=== PATIENT | female | born 1930 | race Caucasian/White ===

== ENCOUNTER 2018-12-06 15:31 | Inpatient (IN) ==
[2018-12-06] MEDS ORDERED: ZOFRAN IV PRN (16:03)
[2018-12-06] MEDS: LEVAQUIN 500 MG/D5W 500 MG/100 ML IVPB IV SCH (17:34)
[2018-12-06] MEDS: NS 1,000 ML IV SCH (17:34)
[2018-12-06 17:39] LABS: BASO# 0.03 X1000 (0.0-0.2); BASO% 0.1 % (0.0-0.8); EOS# 0.04 X1000 (0.0-0.7); EOS% 0.2 % (0.0-10.0); HEMATOCRIT 35.6 % (37.0-47.0); IMM GRAN# 0.05 X1000 (0.0-0.04); IMM GRAN% 0.2 % (0.0-0.5); LYMPH# 0.99 X1000 (1.2-3.4); LYMPH% 4.9 % (20.5-51.1); MCH 30.2 PG (27-31); MCHC 33.7 g/dL (33-37); MCV 89.4 FL (81-99); MONO# 0.97 X1000 (0.11-0.59); MONO% 4.8 % (1.7-9.3); MPV 10.9 FL (7.4-10.4); NEUT# 18.07 X1000 (1.4-6.5); NEUT% 89.8 % (42.2-75.2); PLT 191 X1000 (130-400); RBC 3.98 XMIL (4.2-5.4); RDW 13.2 % (11.5-14.5); WBC 20.15 X1000 (4.8-10.8)
[2018-12-06 17:42] LABS: EOS 1 % (1-10); LYMPHS 3 % (21-51); MONO 4 % (1-9); SEGS 92 % (42-75)
--- NOTE | 2018-12-06 17:42 | Diag Imaging Result Doc PS360 ---
EXAM: CT ABDOMEN/PELVIS W/O CONTRAST 12/06/2018 HISTORY: Intractable abdominal pain TECHNIQUE: This exam was performed using automated exposure control, adjustment of mA or kV according to patient size, and/or use of iterative reconstruction technique. COMMENT: The current examination is compared with 04/27/2012. There is a somewhat ill-defined small nodular opacity in the right lower lobe on image 12 which was not clearly present at the time the previous examination. There is a large hiatal hernia which was present previously. The adrenal glands are not enlarged. The spleen is not enlarged. There has been cholecystectomy. There is no evidence of nephrolithiasis or hydronephrosis. There is some stool in the colon without evidence of dilatation. There has been previous appendectomy. There has been previous hysterectomy. There is diverticulosis in the sigmoid colon without evidence of diverticulitis. The urinary bladder is not distended. The small bowel is not distended and there is no evidence of abdominal aortic aneurysm. The pancreas is somewhat atrophic in appearance. There are spondylotic changes in the lumbar spine with scoliosis and convexity to the right. Overall, considering the lack of IV contrast and oral contrast on the current examination and the somewhat improved constipation on the current examination, there has been no significant change. IMPRESSION: No evidence of stones or obstruction. Hiatal hernia. New nodule in the right lower lobe of uncertain significance. Electronically signed by Shaggy Mejia 12/06/2018 5:39 PM
[2018-12-06 17:48] LABS: ALB/GLOB RATIO 1.4; ALBUMIN 4.3 g/dL (3.5-5.0); CALCIUM 9.8 mg/dL (8.8-10.2); CREATININE 1.3 mg/dL (0.5-0.9); POTASSIUM 3.5 mmol/L (3.5-5.1); TOTAL BILIRUBIN 0.42 mg/dL (0.20-1.00); TOTAL PROTEIN 7.3 g/dL (6.3-8.3)
--- NOTE | 2018-12-06 18:28 | Diag Imaging Result Doc PS360 ---
EXAM: CHEST-2 VIEWS 12/06/2018 HISTORY: Rigor/ leukocytosis/ weakness TECHNIQUE: PA and lateral chest COMMENT: There is a hiatal hernia. There is alveolar opacity in the right upper lobe which was not present on 02/21/2013. There is also increased opacity in the right middle lobe. IMPRESSION: Bronchopneumonia. Electronically signed by Shaggy Mejia 12/06/2018 6:25 PM
[2018-12-06] MEDS: TYLENOL PO PRN (18:34)
[2018-12-06 21:26] LABS: URINE SOURCE CLEAN CATCH
[2018-12-06 21:29] LABS: BILIRUBIN URINE NEGATIVE (NEGATIVE); BLOOD URINE SMALL (NEGATIVE); COLOR YELLOW; GLUCOSE URINE NEGATIVE (NEGATIVE); KETONE URINE NEGATIVE (NEGATIVE); LEUKOCYTES URINE TRACE (NEGATIVE); NITRITE URINE NEGATIVE (NEGATIVE); PH URINE 5.5; PROTEIN URINE NEGATIVE (NEGATIVE); SP GRAVITY URINE 1.007; TURBIDITY URINE CLEAR (CLEAR); UROBILINOGEN URINE NORMAL (NORMAL)
[2018-12-06 21:31] LABS: UR EPITHELIAL CELLS <10 /HPF (<10); URINE BACTERIA NEGATIVE /HPF; URINE RBC <10 /HPF (<10); URINE WBC <10 /HPF (<10)
--- NOTE | 2018-12-07 02:19 | HISTORY AND PHYSICAL ---
PRIMARY CARE PHYSICIAN: Dr. Austin Toribio. CHIEF COMPLAINT: Myalgias, weakness, and a rigor. HISTORY OF PRESENT ILLNESS: An 88-year-old white female with a complicated past medical history, presents for evaluation of above-mentioned symptoms. Pertinent history of present illness began several months ago. At that time, she developed intermittent myalgias, arthralgias, nausea and vomiting. Because of her persistent nausea and vomiting, approximately 1 week ago she had EGD. The patient tolerated this well. Since that time, she has experienced nausea and vomiting only with over eating. The patient states yesterday she developed progressive nausea and vomiting with associated diarrhea. She went to an audiology appointment this morning. While there, she developed profound weakness as well as a rigor. The patient presented to my office for further evaluation and management. Upon arrival in the emergency department, patient was noted to have a rigor and profound weakness. Full evaluation was pursued suggesting an underlying pneumonia and grossly elevated white blood cell count. Patient will be admitted to the hospital for full evaluation and management of community-acquired pneumonia. Of note, patient denies cough, congestion, fevers, shortness of breath, hematochezia, melena, dysuria, hematuria, and pyuria. PAST MEDICAL HISTORY: 1. Abnormal electrocardiogram. 2. Multiple actinic keratoses and a history of skin cancers. 3. Allergic rhinitis. 4. Anemia. 5. Atypical chest pain with negative cardiac evaluation in 2007. 6. Chronic cholecystitis status post laparoscopic cholecystectomy in 2008. 7. Diverticulosis. 8. Depression. 9. Hiatal hernia. 10. Reflux disease. 11. Hypertension. 12. Hypertriglyceridemia. 13. Nonalcoholic fatty liver disease. 14. External hemorrhoids. 15. Hyperlipidemia. 16. Hypothyroidism. 17. Impaired fasting glucose. 18. Chronic low back pain. 19. Osteoarthritis. 20. Palpitations. 21. Postmenopausal state. 22. Valvular heart disease. CURRENT MEDICATIONS: 1. Amlodipine 10 mg daily. 2. Aspirin 81 mg daily. 3. Calcium plus vitamin D once a day. 4. Coenzyme Q10, 100 mg daily. 5. Vitamin B12, 1000 mcg IM monthly. 6. Dexilant 60 mg daily. 7. Duloxetine 30 mg daily. 8. Ibuprofen 800 mg every 6 hours as needed. 9. Levothyroxine 100 mcg daily. 10. Losartan/hydrochlorothiazide 100/12.5 daily. 11. Pravastatin 20 mg at bedtime. 12. Zofran 4 mg every 4 to 6 hours as needed. ALLERGIES: Patient states she is allergic to Celebrex, erythromycin, and penicillin. SOCIAL HISTORY: Patient denies tobacco, alcohol, or illicit drug use. She is a retired triage specialist. She enjoys reading. She exercises by walking. FAMILY HISTORY: Patient's father passed at age 69 secondary to complications of an acute myocardial infarction. Patient's mother passed at age 96 secondary to complications of congestive heart failure. History of diabetes and ovarian cancer is present in siblings. REVIEW OF SYSTEMS: A 12-point review of systems was performed. Pertinent positives and negatives noted in history present illness. PHYSICAL EXAMINATION: VITAL SIGNS: Temperature 99.6 degrees, heart rate 68, respirations 18, blood pressure is 143/71. GENERAL: Well-nourished, well-developed, no acute distress. HEENT: Normocephalic, atraumatic. Pupils equal, round, react to light. Extraocular muscles intact. Sclerae anicteric. [place] conjunctivae. Oral and nasopharynx clear without exudate. NECK: Supple. No lymphadenopathy. No thyromegaly. No bruits auscultated. CARDIOVASCULAR: Regular rate and rhythm. No significant murmurs, rubs, or gallops. PULMONARY: Clear to auscultation bilaterally. ABDOMEN: Soft, nontender, nondistended. Positive bowel sounds. EXTREMITIES: Moves all extremities well. No significant clubbing, cyanosis, or edema. NEUROLOGIC: Cranial nerves 2 through 12 grossly intact. Motor and sensory grossly intact. PSYCHOLOGIC: Appropriate. LABORATORY DATA: White blood cell count 20.15, hemoglobin 12.0, hematocrit 35.6, platelet count is 191,000. Sodium 137, potassium 3.5, chloride 99, bicarb 26, BUN 35, creatinine 1.3. Glucose 142, calcium 9.8, total bilirubin 0.42, total protein 7.3, albumin 4.3, alkaline phosphatase 84, AST 22, ALT 16. Urinalysis revealed small blood and trace leukocyte esterase. Chest x-ray revealed bronchopneumonia. Abdominal and pelvis CT revealed no evidence of stones or obstruction. Hiatal hernia. New nodule in the right lower lobe of uncertain significance. ASSESSMENT AND PLAN: An 88-year-old, white female, presented acutely to my office with a rigor. A full evaluation revealed underlying bronchopneumonia with a significant leukocytosis. The patient will be admitted to the hospital for full evaluation and management of this condition. 1. Admit to General Medicine. 2. Community-acquired pneumonia/bronchopneumonia -- we will check blood cultures and sputum cultures. We will start patient on IV levofloxacin therapy. We will encourage incentive spirometry. As patient is not wheezing, we will not initiate bronchodilators; however, we will have a low threshold should her condition progress. 3. Leukocytosis -- this likely is a consequence of her acute illness. We will treat as described above. 4. Reflux disease -- patient has longstanding disease. We will continue Dexilant therapy. 5. Right lower lobe lung nodule -- this is a new diagnosis. We will plan to follow this as an outpatient. 6. Hyperlipidemia/hypertriglyceridemia -- we will continue pravastatin therapy. 7. Hypothyroidism -- we will continue patient on replacement. 8. Fluid, electrolytes, nutrition -- we will monitor electrolytes. Normal saline at 50 mL/h. Cardiac prudent diet. 9. Prophylaxis -- patient will be placed on subcutaneous Lovenox. cc: Austin Toribio MD
[2018-12-07] MEDS: TYLENOL PO PRN ×3 (04:16→20:57)
[2018-12-07] MEDS: DEXILANT PO SCH (06:19)
[2018-12-07] MEDS: SYNTHROID PO SCH (06:19)
[2018-12-07 06:40] LABS: BASO# 0.03 X1000 (0.0-0.2); BASO% 0.2 % (0.0-0.8); EOS% 0.7 % (0.0-10.0); HEMATOCRIT 31.6 % (37.0-47.0); HEMOGLOBIN 10.5 g/dL (12.0-16.0); IMM GRAN# 0.02 X1000 (0.0-0.04); IMM GRAN% 0.1 % (0.0-0.5); LYMPH# 1.96 X1000 (1.2-3.4); LYMPH% 14.7 % (20.5-51.1); MCH 29.7 PG (27-31); MCHC 33.2 g/dL (33-37); MCV 89.3 FL (81-99); MONO# 0.86 X1000 (0.11-0.59); MONO% 6.4 % (1.7-9.3); MPV 10.7 FL (7.4-10.4); NEUT# 10.38 X1000 (1.4-6.5); NEUT% 77.9 % (42.2-75.2); PLT 173 X1000 (130-400); RBC 3.54 XMIL (4.2-5.4); RDW 13.2 % (11.5-14.5); WBC 13.35 X1000 (4.8-10.8)
[2018-12-07 06:56] LABS: ALB/GLOB RATIO 1.4; ALBUMIN 3.6 g/dL (3.5-5.0); CALCIUM 8.6 mg/dL (8.8-10.2); CREATININE 1.2 mg/dL (0.5-0.9); POTASSIUM 3.3 mmol/L (3.5-5.1); TOTAL BILIRUBIN 0.52 mg/dL (0.20-1.00); TOTAL PROTEIN 6.2 g/dL (6.3-8.3)
[2018-12-07] MEDS: NS 1,000 ML IV SCH (08:16)
[2018-12-07] MEDS: ASPIRIN PO SCH (08:57)
[2018-12-07] MEDS: CYMBALTA PO SCH (08:57)
[2018-12-07] MEDS: LOVENOX SUBQ SCH (08:57)
[2018-12-07] MEDS: CALTRATE 600 + D PO SCH (08:57)
[2018-12-07] MEDS: HYZAAR 50/12.5 MG PO SCH (09:00)
[2018-12-07] MEDS: LEVAQUIN 500 MG/D5W 500 MG/100 ML IVPB IV SCH (19:50)
[2018-12-07] MEDS ORDERED: PRAVACHOL PO SCH (21:00)
--- NOTE | 2018-12-07 22:24 | PROGRESS NOTE ---
DATE: 12/07/2018 SUBJECTIVE: Patient was admitted yesterday with community-acquired pneumonia/bronchopneumonia. Patient was started on levofloxacin therapy. Since starting levofloxacin, patient's overall condition has demonstrated improvement. The patient has not experienced a recurrence of her rigor. Patient denies fevers and chills. Her energy level is slowly improving. OBJECTIVE: Temp 98.5, heart rate 60-84, respirations 14-18, blood pressure 120 to 136/43 to 51.General: Well nourished, well developed, no acute distress. Cardiovascular: Regular rate and rhythm. No significant murmurs, rubs, or gallops. Pulmonary: Clear to auscultation bilaterally. Abdomen: Soft, nontender, nondistended. Positive bowel sounds. Extremities: Moves all extremities well. No significant clubbing, cyanosis, or edema. Dermatologic: Evaluation reveals no evidence of rash. LABORATORY DATA: White blood cell count 13.35, hemoglobin 10.5, hematocrit 31.6, platelet count 173,000, sodium 141, potassium 3.3, chloride 105, bicarb 23, BUN 30, creatinine 1.1, glucose 119, calcium 8.6, total bilirubin 0.52, total protein 6.2, albumin 3.6, alkaline phosphatase 68, AST 14, ALT 13. ASSESSMENT AND PLAN: 1. Continue acquired pneumonia/bronchopneumonia-patient has achieved significant improvement with levofloxacin therapy. We will continue this and encourage incentive spirometry. We will continue to follow blood cultures. We will encourage activity. 2. Leukocytosis-this is slowly improving. We will recheck levels in the morning. We will continue treatment for the patient's community-acquired pneumonia with levofloxacin therapy. 3. Right lower lobe lung nodule-this is a new diagnosis. Patient will need close followup as an outpatient. 4. Hyperlipidemia/hypertriglyceridemia-we will continue patient on pravastatin therapy. 5. Hypothyroidism-we will continue patient on replacement. 6. Disposition-at this point, patient continues to require usp care in a hospital setting. We will plan discharge home once appropriate. cc: Austin Toribio MD
[2018-12-08] MEDS: SYNTHROID PO SCH (06:23)
[2018-12-08] MEDS: DEXILANT PO SCH (06:23)
[2018-12-08 06:33] LABS: BASO# 0.04 X1000 (0.0-0.2); BASO% 0.6 % (0.0-0.8); EOS# 0.17 X1000 (0.0-0.7); EOS% 2.3 % (0.0-10.0); HEMATOCRIT 30.8 % (37.0-47.0); HEMOGLOBIN 10.1 g/dL (12.0-16.0); IMM GRAN# 0.02 X1000 (0.0-0.04); IMM GRAN% 0.3 % (0.0-0.5); LYMPH# 1.68 X1000 (1.2-3.4); LYMPH% 23.2 % (20.5-51.1); MCH 29.6 PG (27-31); MCHC 32.8 g/dL (33-37); MCV 90.3 FL (81-99); MONO# 0.71 X1000 (0.11-0.59); MONO% 9.8 % (1.7-9.3); MPV 10.5 FL (7.4-10.4); NEUT# 4.63 X1000 (1.4-6.5); NEUT% 63.8 % (42.2-75.2); PLT 172 X1000 (130-400); RBC 3.41 XMIL (4.2-5.4); RDW 13.2 % (11.5-14.5); WBC 7.25 X1000 (4.8-10.8)
[2018-12-08 07:21] LABS: CALCIUM 8.7 mg/dL (8.8-10.2); CREATININE 1.2 mg/dL (0.5-0.9); POTASSIUM 3.8 mmol/L (3.5-5.1)
[2018-12-08] MEDS: CYMBALTA PO SCH (08:31)
[2018-12-08] MEDS: CALTRATE 600 + D PO SCH (08:31)
[2018-12-08] MEDS: HYZAAR 50/12.5 MG PO SCH (08:31)
[2018-12-08] MEDS: LOVENOX SUBQ SCH (08:31)
[2018-12-08] MEDS: ASPIRIN PO SCH (08:31)
--- NOTE | 2018-12-08 09:41 | Diag Imaging Result Doc PS360 ---
EXAM: CHEST-2 VIEWS HISTORY: hypoxia TECHNIQUE: Chest two views 12/06/2018 COMPARISON: None. FINDINGS: The lungs are hyper expanded. No cardiomegaly. No vascular distention. Small opacity in the mid right lung remains. There is a nodule in the lower left lung. No pleural effusions. There is a small hiatal hernia. Apical pleural plaques. IMPRESSION: No interval improvement. Electronically signed by Bib Monte 12/08/2018 9:38 AM
[2018-12-08] MEDS: LEVAQUIN 500 MG/D5W 500 MG/100 ML IVPB IV SCH (10:23)
[2018-12-08 11:28] VITALS: BP 135/52
--- NOTE | 2018-12-08 19:14 | DISCHARGE SUMMARY ---
ADMISSION DATE: 12/06/2018 DISCHARGE DATE: 12/08/2018 ADMISSION DIAGNOSIS: 1. Myalgias. 2. Weakness. 3. Rigor. DISCHARGE DIAGNOSES: 1. Community-acquired pneumonia/broncho pneumonia. 2. Leukocytosis, improved. 3. Right lower lobe lung nodule. 4. Hyperlipidemia/hypertriglyceridemia, present on arrival 5. Hypothyroidism, present on arrival. 6. Weakness, improving. CONSULTATIONS: None. PROCEDURES: 1. Chest x-ray was performed on 12/06/2018 which revealed bronchopneumonia. 2. CT scan of the abdomen and pelvis was performed on 12/06/2018 which revealed no evidence of stones or obstruction. Hiatal hernia was noted. A new nodule in the right lower lobe was noted of uncertain significance. 3. Chest x-ray was performed on 12/06/2018 which revealed a nodule in the left lower lung. Small opacity in the mid right lung remained. No interval improvement was identified. HISTORY AND PHYSICAL EXAMINATION: See admit note. PHYSICAL EXAMINATION PRIOR TO DISCHARGE: Temperature 99.3 degrees, heart rate 64, respirations 20, blood pressure is 129/53. General: Well nourished, well developed, no acute distress. Cardiovascular: Regular rate and rhythm. No significant murmurs, rubs, or gallops. Pulmonary: Clear to auscultation bilaterally. Abdomen: Soft, nontender, nondistended. Positive bowel sounds. Extremities: Moves all extremities well. No significant clubbing, cyanosis, or edema. Dermatologic: Evaluation reveals no evidence of rash. LABORATORY DATA: Prior to discharge. White blood cell count 7.25, hemoglobin 10.1, hematocrit 30.8, platelet count 172,000, sodium 144, potassium 3.8, chloride 109, bicarb 24, BUN 26, creatinine 1.2, glucose 142, calcium 8.7. HOSPITAL COURSE: Patient was admitted as per history and physical examination. Hospital course per condition: 1. Community-acquired pneumonia/broncho pneumonia-upon admission, patient was noted to have myalgias, rigor and profound weakness. Chest x-ray was consistent with an underlying pneumonia. Patient was started on levofloxacin therapy. Incentive spirometry and aspiration precautions were encouraged. Blood cultures were drawn and ultimately returned negative. With antibiotic intervention, patient achieved improvement. At time of discharge, patient noted weakness but denied rigors, fevers or shortness of breath. Patient will be discharged home with close followup as an outpatient. 2. Leukocytosis-the patient achieved resolution while hospitalized with treatment for her underlying community-acquired pneumonia. We will continue to follow this as an outpatient. 3. Right lower lobe lung nodule-this is a new diagnosis per CT scan. Once patient has improved her pneumonia, we will plan a repeat CT scan of the chest. We will determine if pulmonary followup is appropriate. 4. Hyperlipidemia/hypertriglyceridemia-patient has longstanding disease. She was treated with pravastatin therapy while hospitalized. 5. Hypothyroidism-once again, patient has longstanding disease. She was treated with levothyroxine replacement while hospitalized. 6. Profound weakness-patient has achieved improvement, although not back to baseline with treatment of her underlying pneumonia. At this point, we will continue to encourage activity and supportive care. Should patient not achieve improvement at home, we will consider adding physical therapy. DISCHARGE CONDITION: Good. DISPOSITION: Discharged to home. MEDICATIONS: 1. Aspirin 81 mg daily. 2. Caltrate plus vitamin D daily. 3. Dexilant 60 mg daily. 4. Cymbalta 30 mg daily. 5. Levothyroxine 100 mcg daily. 6. Hyzaar 100/25 daily. 7. Pravastatin 20 mg at bedtime. 8. Acetaminophen 650 mg every 4 hours as needed. 9. Levaquin 500 mg daily for the next 5 days. 10. Multivitamin. FOLLOWUP: Patient is to follow up with me in approximately 1 to 2 weeks. cc: Austin Toribio MD
== END 2018-12-08 12:00 | disposition home or self-care (01) | DRG 195 ==
LOC: DIRADM 15:31 → 4N 15:38
PROVIDERS: ADMIT Internal Medicine; ATTEND Internal Medicine
CPT/HCPCS: 71020; 71046; 74176; 80048; 80053; 81001; 82150; 83690; 85025; 87040; 87088; 94761; 94799; A9270; J1650; J1956; J7030